=== PATIENT | male | born 1945 | race Caucasian/White ===

== ENCOUNTER → 2019-07-16 | Outpatient (CLI) | payer MEDICARE ==
[~2019-07-16] MED LIST: ATOR20TA PO; CLOP75TA52 PO; HYDR-3241 PO
== END | disposition home or self-care (01) ==
LOC: CVU 06:45
PROVIDERS: ATTEND Genetic Counselor, MS
DX: I74.5 Embolism and thrombosis of iliac artery (principal); I77.811 Abdominal aortic ectasia
CPT/HCPCS: 93978

== ENCOUNTER → 2019-09-02 | Outpatient (CLI) | payer MEDICARE | END | disposition home or self-care (01) | LOC: CVU 06:46 | PROVIDERS: ATTEND Surgery | DX: I70.212 Atherosclerosis of native arteries of extremities with intermittent claudication, left leg (principal); I70.221 Atherosclerosis of native arteries of extremities with rest pain, right leg; E78.5 Hyperlipidemia, unspecified; Z95.820 Peripheral vascular angioplasty status with implants and grafts; F17.200 Nicotine dependence, unspecified, uncomplicated | CPT/HCPCS: 93922; 93925 ==

== ENCOUNTER 2019-09-12 06:51 | Day surgery (SDC) | payer MEDICARE ==
[~2019-09-12] VITALS: Ht 177.8 cm; Wt 66.5 kg
[2019-09-12] MEDS ORDERED: SODIUM CHLORIDE 0.9% 1,000 ML IV SCH (07:22)
[2019-09-12 07:43] VITALS: BP 150/50
[2019-09-12 08:11] LABS: BASOPHILS # (AUTO) 0.02 x10^3/uL (0-0.1); BASOPHILS % (AUTO) 0 % (0-1); EOSINOPHILS # (AUTO) 0.12 x10^3/uL (0-0.4); EOSINOPHILS % (AUTO) 2 % (1-7); LYMPHOCYTES # (AUTO) 1.63 x10^3/uL (1-3.4); LYMPHOCYTES % (AUTO) 24 % (22-44); MD NO; MEAN CORPUSCULAR HEMOGLOBIN 32.9 pg (27.5-34.5); MEAN CORPUSCULAR HGB CONC 33.6 g/dL (33.2-36.2); MEAN CORPUSCULAR VOLUME 97.8 fL (81-97); MEAN PLATELET VOLUME 8.8 fL (7.4-10.4); MONOCYTES # (AUTO) 0.72 x10^3/uL (0.2-0.8); MONOCYTES % (AUTO) 11 % (2-9); NEUTROPHILS # (AUTO) 4.26 x10^3/uL (1.8-6.8); NEUTROPHILS % (AUTO) 63 % (42-75); PLATELET COUNT 194 x10^3/uL (130-400); RED BLOOD COUNT 5.08 x10^6/uL (4.38-5.82); RED CELL DISTRIBUTION WIDTH 13.6 % (9.4-14.8)
[2019-09-12 08:19] LABS: ANION GAP 5 mmol/L (5-15); CHLORIDE 112 mmol/L (98-107); CREATININE 1.12 mg/dL (0.7-1.3)
[2019-09-12] MEDS ORDERED: FLUMAZENIL 0.1 MG/1 ML, 5ML ONE (08:29)
[2019-09-12] MEDS ORDERED: FENTANYL PF 100 MCG/2ML ONE (08:29)
[2019-09-12] MEDS ORDERED: MIDAZOLAM 1 MG/ML, 5ML ONE (08:29)
[2019-09-12] MEDS ORDERED: NALOXONE 1 MG/ML, 2ML ONE (08:30)
[2019-09-12] MEDS ORDERED: NITROGLYCERIN 5 MG/ML, 10ML ONE (08:30)
[2019-09-12] MEDS ORDERED: PROTAMINE SULFATE 10 MG/ML, 25ML ONE ×2 (08:30→08:31)
[2019-09-12] MEDS ORDERED: HEPARIN 1,000 UNITS/ML, 10ML ONE (08:31)
[2019-09-12] MEDS ORDERED: LIDOCAINE 1%, 10ML ONE (09:04)
[2019-09-12] MEDS ORDERED: CLOPIDOGREL 300 MG TABLET PO ONE (11:00)
[2019-09-12] MEDS ORDERED: VISIPAQUE 270 MG/ML, 150ML BOTTLE ONE (13:00)
== END 2019-09-12 12:18 | disposition home or self-care (01) ==
LOC: OUT 06:51 → EDSTATUS 09:00 → OUT 12:18
PROVIDERS: ATTEND Surgery
DX: I70.222 Atherosclerosis of native arteries of extremities with rest pain, left leg (principal); I25.10 Atherosclerotic heart disease of native coronary artery without angina pectoris; F32.9 Major depressive disorder, single episode, unspecified; E78.00 Pure hypercholesterolemia, unspecified; F17.210 Nicotine dependence, cigarettes, uncomplicated; Z98.890 Other specified postprocedural states
CPT/HCPCS: 36415; 37221; 37222; 75625; 75710; 76937; 80048; 85025; 99156; 99157; C1725; C1751; C1760; C1769; C1876; C1894; J1644; J2250; J2720; J3010; J7030; Q9966; 37220; 75630; J2310